=== PATIENT | female | born 1980 | race American Indian/Alaskan Native ===

== ENCOUNTER 2018-06-29 18:59 | Emergency (ER) | payer OTHER ==
[2018-06-29 19:00] VITALS: BMI 31.6
[2018-06-29 19:36] VITALS: BP 122/73; PULSE 94; RESP 20; TEMP 98.5; O2SAT 98
--- NOTE | 2018-06-29 20:41 | C.PDOC ---
History Of Present Illness 38 y/o female presents to the ER complaining of dry cough which has been present for the past 2 to 3 days. Patient states that the coughing is constant. Patient reports that she was started on antibiotic for throat infection several days ago. She notes that she is still taking the augmentin but the cough persists. Denies having CP, SOB, vomiting, diarrhea, and recent travel. Time Seen by Provider: 06/29/18 19:42 Chief Complaint (Nursing): Medical Clearance History Per: Patient History/Exam Limitations: no limitations Onset/Duration Of Symptoms: Days Current Symptoms Are (Timing): Still Present Severity: Moderate Past Medical History Reviewed: Historical Data, Nursing Documentation, Vital Signs Vital Signs: Last Vital Signs Temp 98.5 F 06/29/18 19:30 Pulse 94 H 06/29/18 19:30 Resp 20 06/29/18 19:30 BP 122/73 06/29/18 19:30 Pulse Ox 98 06/29/18 21:41 - Medical History PMH: No Chronic Diseases Denies: Depression Surgical History: No Surg Hx Family History: States: No Known Family Hx - Social History Hx Tobacco Use: No Hx Alcohol Use: No Hx Substance Use: No - Immunization History Hx Tetanus Toxoid Vaccination: No Hx Influenza Vaccination: No Hx Pneumococcal Vaccination: No Review Of Systems Except As Marked, All Systems Reviewed And Found Negative. Constitutional: Negative for: Fever, Chills Cardiovascular: Negative for: Chest Pain Respiratory: Positive for: Cough. Negative for: Shortness of Breath Gastrointestinal: Negative for: Vomiting, Diarrhea Physical Exam - Physical Exam Appears: Non-toxic, No Acute Distress Skin: Normal Color, Warm, Dry, No Rash Head: Atraumatic, Normacephalic Eye(s): bilateral: Normal Inspection Ear(s): Bilateral: Normal Nose: Normal Oral Mucosa: Moist Throat: Normal, No Erythema, No Exudate Neck: Supple Chest: Symmetrical Cardiovascular: Rhythm Regular Respiratory: Normal Breath Sounds, No Rales, No Rhonchi, No Wheezing Gastrointestinal/Abdominal: Normal Exam, Soft, No Tenderness, No Guarding, No Rebound Back: No CVA Tenderness Neurological/Psych: Oriented x3, Normal Speech ED Course And Treatment ECG: Interpreted By Me, Discussed With Corporate Communications Associate ECG Rhythm: Torsades de Pointes, Idioventricular Rhythm, AV Paced O2 Sat by Pulse Oximetry: 98 (RA) Pulse Ox Interpretation: Normal - Radiology CXR: Interpreted by Me CXR Interpretation: Yes: No Acute Disease. No: Infiltrates Medical Decision Making Medical Decision Making: Plan: --CXR On re-exam, the patient reports improvement of symptoms. Lungs are CTA, heart is RRR, abdomen is soft, non-tender and the patient is tolerating PO well. Follow up with the medical doctor within 1-2 days without fail. Disposition - Disposition Referrals: Celestino Lopez DO [Staff Provider] - Disposition: HOME/ ROUTINE Disposition Time: 21:37 Condition: STABLE Additional Instructions: Follow up with the medical doctor within 1-2 days without fail. Return if worsened. Prescriptions: Loratadine [Claritin] 10 mg PO DAILY #10 tab predniSONE [Prednisone] 20 mg PO BID #8 tab Promethazine/Phenyleph/Codeine [Pchumdafgaln-VQ-Tjvjyiz Syrup] 5 ml PO Q8 PRN # 50 ml PRN Reason: Cough Instructions: Acute Bronchitis Forms: [employer] (Greek) - Clinical Impression Clinical Impression: Bronchitis - PA / BRICKLAYER / Resident Statement / has reviewed & agrees with the documentation as recorded. - Scribe Statement The provider has reviewed the documentation as recorded by the Hilda Ta Provider Attestation All medical record entries made by the Morroibe were at my direction and personally dictated by me. I have reviewed the chart and agree that the record accurately reflects my personal performance of the history, physical exam, medical decision making, and the department course for this patient. I have also personally directed, reviewed, and agree with the discharge instructions and disposition.
--- NOTE | 2018-06-30 09:32 | RAD ---
Date of service: 06/29/2018 HISTORY: cough, bodyaches COMPARISON: No prior. TECHNIQUE: Chest PA and lateral FINDINGS: LUNGS: No active pulmonary disease. PLEURA: No significant pleural effusion identified. No pneumothorax apparent. CARDIOVASCULAR: Normal. OSSEOUS STRUCTURES: No significant abnormalities. VISUALIZED UPPER ABDOMEN: Normal. OTHER FINDINGS: None. IMPRESSION: No active disease.
== END 2018-06-29 21:53 | disposition home or self-care (01) ==
LOC: C.ER 18:59
DX: J40 Bronchitis, not specified as acute or chronic (principal)